=== PATIENT | female | born 1995 | race Two or more races ===

== ENCOUNTER → 2024-10-16 | Outpatient (CLI) | payer MEDICAID, SELFPAY ==
--- NOTE | 2024-10-16 12:00 | XR_ITS ---
Examination: Abdomen sonogram, complete Date and time of exam: October 16, 2024 1552 hours INDICATIONS: Generalized abdominal pain 2 months. Technique: Multiple real-time grayscale transabdominal sonographic images of the abdomen have been obtained. Findings: Normal gallbladder Normal common bile duct 0.2 cm Pancreatic head 1.8 cm Aorta not enlarged Liver 12.4 cm fatty infiltration Normal hepatopedal portal venous flow Patent IVC Right kidney 11.9 cm cortex 1.8 cm Left kidney 11.1 cm cortex 1.7 cm Spleen 9.1 cm IMPRESSION: Normal gallbladder Fatty liver
== END | disposition home or self-care (01) ==
DX: K76.0 Fatty (change of) liver, not elsewhere classified (principal)
CPT/HCPCS: 76700